=== PATIENT | female | born 1990 | race African-American/Black ===

== ENCOUNTER 2023-07-20 14:48 | Emergency (ER) | payer OTHER ==
[2023-07-20 14:54] VITALS: BP 146/96; PULSE 92; RESP 20; TEMP 98.3; BMI 31.3
[2023-07-20 16:23] LABS: BASO % 1.2 % (0-2.0); EOS % 1.1 % (0-4.5); HEMOGLOBIN 9.7 GM/dL (10.7-15.3); LYMPH % 33.5 % (8-40); MCH 23.3 pg (25.7-33.7); MCHC 32.3 g/dl (32.0-36.0); MEAN CELL VOLUME 72.1 fl (80-96); MEAN PLT VOLUME 8.9 fl (7.5-11.1); MONO % 9.1 % (3.8-10.2); NEUT % 55.1 % (42.8-82.8); PLATELET COUNT 256 10^3/uL (134-434); RBC 4.17 M/mm3 (3.60-5.2); RDW 18.8 % (11.6-15.6); WHITE BLOOD COUNT 4.6 K/mm3 (4.0-10.0)
[2023-07-20 16:31] LABS: EPI CELLS >36 /uL (0-25.1); HYALINE CASTS 0 /uL (0-3.1); URINE APPEARANCE CLEAR; URINE BACTERIA 164 /uL (0-1359); URINE BILIRUBIN NEGATIVE (NEGATIVE); URINE COLOR YELLOW; URINE GLUCOSE (UA) NEGATIVE (NEGATIVE); URINE KETONE NEGATIVE (NEGATIVE); URINE LEUK ESTERASE NEGATIVE (NEGATIVE); URINE NITRITE NEGATIVE (NEGATIVE); URINE PROTEIN NEGATIVE (NEGATIVE); URINE RBC 17 /uL (0-23.9); URINE UROBILINOGEN 0.2 mg/dL (0.2-1.0); URINE WBC 6 /uL (0-25.8)
[2023-07-20 16:45] LABS: HCG,QUALITATIVE URINE Negative
[2023-07-20 17:23] LABS: POTASSIUM 3.8 mmol/L (3.5-5.1)
[2023-07-20 17:25] LABS: CALCIUM 8.8 mg/dL (8.5-10.1)
[2023-07-20 17:26] LABS: ALBUMIN 3.5 g/dl (3.4-5.0); BLOOD UREA NITROGEN 14.3 mg/dL (7-18)
[2023-07-20 17:29] LABS: CREATININE 1.1 mg/dL (0.55-1.3)
[2023-07-20 17:31] LABS: TOT PROT 7.5 g/dl (6.4-8.2)
[2023-07-20 17:33] LABS: BILIRUBIN,TOTAL 0.2 mg/dL (0.2-1)
[2023-07-20 18:19] LABS: HIV INTERPRETATION NEGATIVE (NEGATIVE)
== END 2023-07-20 18:15 | disposition home or self-care (01) ==
LOC: JERFT 14:48
DX: R10.30 Lower abdominal pain, unspecified (principal); R10.2 Pelvic and perineal pain; M54.50 Low back pain, unspecified; N89.8 Other specified noninflammatory disorders of vagina; D64.9 Anemia, unspecified; D21.9 Benign neoplasm of connective and other soft tissue, unspecified
CPT/HCPCS: 36415; 76830-TC; 80053; 81003; 84703; 85025; 86780; 86803; 87070; 87086; 87186; 87205; 87389; 87491; 87591; 99284-25

== ENCOUNTER 2023-09-20 18:58 | Emergency (ER) | payer OTHER ==
[2023-09-20 19:12] VITALS: BP 176/113; PULSE 85; RESP 20; TEMP 99; BMI 31.3
[2023-09-20] MEDS ORDERED: ACETAMINOPHEN INJECTION 100 ML IVPB ONE (20:14)
[2023-09-20 20:47] LABS: BASO % 0.8 % (0-2.0); HEMATOCRIT 31.4 % (32.4-45.2); LYMPH % 25.3 % (8-40); MCHC 31.9 g/dl (32.0-36.0); MEAN PLT VOLUME 9.3 fl (7.5-11.1); MONO % 9.5 % (3.8-10.2); NEUT % 63.4 % (42.8-82.8); PLATELET COUNT 295 10^3/uL (134-434); RBC 4.37 M/mm3 (3.60-5.2); RDW 17.8 % (11.6-15.6); WHITE BLOOD COUNT 6.2 K/mm3 (4.0-10.0)
[2023-09-20 20:54] LABS: INR 0.98 (0.83-1.09); PROTHROMBIN TIME (PATIENT) 11.1 SEC (9.7-13.0)
[2023-09-20 20:57] LABS: ACTIVATED PTT 31.3 SECONDS (25.2-36.5)
[2023-09-20] MEDS: ACETAMINOPHEN 1000 MG/100 ML BAG IVPB ONE (20:57)
[2023-09-20 21:07] LABS: ALBUMIN 3.5 g/dl (3.4-5.0); BLOOD UREA NITROGEN 7.1 mg/dL (7-18)
[2023-09-20 21:09] LABS: CREATININE 0.9 mg/dL (0.55-1.3)
[2023-09-20 21:27] LABS: BILIRUBIN,TOTAL 0.2 mg/dL (0.2-1)
[2023-09-20 22:32] LABS: HCG,QUALITATIVE URINE Negative; URINE APPEARANCE CLEAR; URINE BILIRUBIN NEGATIVE (NEGATIVE); URINE COLOR YELLOW; URINE GLUCOSE (UA) NEGATIVE (NEGATIVE); URINE KETONE TRACE (NEGATIVE); URINE LEUK ESTERASE NEGATIVE (NEGATIVE); URINE NITRITE NEGATIVE (NEGATIVE); URINE PROTEIN TRACE (NEGATIVE); URINE UROBILINOGEN 0.2 mg/dL (0.2-1.0)
== END 2023-09-21 00:47 | disposition home or self-care (01) ==
LOC: JER 18:58
PROC: 3E033NZ Introduction of Analgesics, Hypnotics, Sedatives into Peripheral Vein, Percutaneous Approach (ICD-10-PCS; principal; 2023-09-20)
DX: D25.9 Leiomyoma of uterus, unspecified (principal); R10.13 Epigastric pain; R10.31 Right lower quadrant pain; R10.32 Left lower quadrant pain; R10.33 Periumbilical pain; N93.9 Abnormal uterine and vaginal bleeding, unspecified
CPT/HCPCS: 36415; 80053; 81003; 83690; 84703; 85025; 85610; 85730; 86850; 86900; 86901; 96374; 99284-25; J0131

== ENCOUNTER 2023-09-26 23:38 | Emergency (ER) | payer OTHER ==
[2023-09-26 23:43] VITALS: BP 126/76; PULSE 102; RESP 20; TEMP 97.9; BMI 31.3
[2023-09-27] MEDS ORDERED: guaiFENesin/CODEINE 5 ML UNIT-DOSE CUPS PO ONE (00:35)
[2023-09-27] MEDS: guaiFENesin/CODEINE 5 ML UNIT-DOSE CUPS PO ONE (00:37)
[2023-09-27] MEDS ORDERED: BENZOCAINE/MENTH/CETYLPYRD CL 1 EACH LOZENGE MM ONE (00:37)
[2023-09-27] MEDS: BENZOCAINE/MENTH/CETYLPYRD CL 1 EACH LOZENGE MM ONE (00:37)
== END 2023-09-27 00:48 | disposition home or self-care (01) ==
LOC: JER 23:38
DX: J02.9 Acute pharyngitis, unspecified (principal)
CPT/HCPCS: 99283-25

== ENCOUNTER 2023-10-02 12:47 | Emergency (ER) | payer OTHER ==
[2023-10-02 12:53] VITALS: BP 145/94; PULSE 93; RESP 18; TEMP 98; BMI 31.3
[2023-10-02 14:24] LABS: BASO % 0.7 % (0-2.0); EOS % 0.8 % (0-4.5); HEMATOCRIT 31.1 % (32.4-45.2); LYMPH % 30.7 % (8-40); MCH 23.3 pg (25.7-33.7); MCHC 32.2 g/dl (32.0-36.0); MEAN CELL VOLUME 72.4 fl (80-96); MEAN PLT VOLUME 9.3 fl (7.5-11.1); MONO % 7.6 % (3.8-10.2); NEUT % 60.2 % (42.8-82.8); PLATELET COUNT 368 10^3/uL (134-434); RBC 4.29 M/mm3 (3.60-5.2); WHITE BLOOD COUNT 4.4 K/mm3 (4.0-10.0)
[2023-10-02 14:45] LABS: POTASSIUM 4.2 mmol/L (3.5-5.1)
[2023-10-02 14:46] LABS: ALBUMIN 3.3 g/dl (3.4-5.0); BLOOD UREA NITROGEN 11.9 mg/dL (7-18); CALCIUM 9.2 mg/dL (8.5-10.1)
[2023-10-02 14:52] LABS: BILIRUBIN,TOTAL 0.5 mg/dL (0.2-1); TOT PROT 7.8 g/dl (6.4-8.2)
[2023-10-02] MEDS ORDERED: KETOROLAC TROMETHAMINE 30 MG/1 ML VIAL ONE (14:59)
[2023-10-02 15:18] LABS: PH,URINE 6.5 (5.0-8.0); URINE APPEARANCE CLEAR; URINE BILIRUBIN NEGATIVE (NEGATIVE); URINE COLOR YELLOW; URINE GLUCOSE (UA) NEGATIVE (NEGATIVE); URINE KETONE NEGATIVE (NEGATIVE); URINE LEUK ESTERASE NEGATIVE (NEGATIVE); URINE NITRITE NEGATIVE (NEGATIVE); URINE PROTEIN NEGATIVE (NEGATIVE); URINE UROBILINOGEN 0.2 mg/dL (0.2-1.0)
[2023-10-02 15:19] LABS: HCG,QUALITATIVE URINE Negative
[2023-10-02] MEDS ORDERED: ACETAMINOPHEN 1000 MG/100 ML BAG IVPB ONE (15:42)
[2023-10-02] MEDS ORDERED: ACETAMINOPHEN INJECTION 100 ML IVPB ONE (15:43)
== END 2023-10-02 15:56 | disposition left against medical advice (07) ==
LOC: JERFT 12:47
DX: R10.9 Unspecified abdominal pain (principal)
CPT/HCPCS: 36415; 74177-TC; 80053; 81003; 83690; 84703; 85025; 87077; 87086; 99285-25; Q9967